=== PATIENT | female | born 1970 | race Caucasian/White ===

== ENCOUNTER 2019-10-12 09:07 | Outpatient (CLI) | payer OTHER, SELFPAY ==
--- NOTE | ~2019-10-12 | MM_ITS ---
EXAMINATION: MM screening [facility] BI w balta HISTORY: Screening mammogram TECHNIQUE: Craniocaudal and mediolateral oblique 3-D tomosynthesis images were obtained and synthetic 2-D images were generated. CAD analysis was submitted and interpreted. COMPARISON: 10/01/2018, 09/23/2017, 09/10/2016 BREAST PARENCHYMAL COMPOSITION: There are scattered areas of fibroglandular density. FINDINGS: There is no evidence of suspicious mass, calcification, or architectural distortion to sugg est malignancy in either breast. There has been no suspicious interval change. IMPRESSION: 1. No mammographic evidence of malignancy. 2. Recommend routine screening mammography in one year. BI-RADS Category 1: Negative Reviewed, dictated and finalized at location A.
== END 2019-10-12 09:08 | disposition home or self-care (01) ==
LOC: ANHIMG 09:10
PROVIDERS: PCP Family Medicine Sports Medicine; Visit Provider Obstetrics & Gynecology
DX: Z12.31 Encounter for screening mammogram for malignant neoplasm of breast (principal)
CPT/HCPCS: 77063; 77067

== ENCOUNTER 2019-10-14 08:43 | Outpatient (CLI) | payer OTHER, SELFPAY ==
--- NOTE | 2019-10-14 09:03 | ECG_ITS ---
Measurements Intervals [place] Rate: 69 P: 41 MS: 143 QRS: 48 QRSD: 107 T: 50 QT: 393 QTc: 422 Interpretive Statements SINUS RHYTHM NORMAL ECG Electronically Signed On 10-14-2019 9:27:09 CDT by Jadon Buckley D.O.
[2019-10-14 09:07] LABS: Basophils Percent Auto 0.6 % (0.2-1.2); Eosinophils Absolute Auto 0.1 K/mm3 (0-0.3); Eosinophils Percent Auto 2.2 % (0-4.4); Hematocrit 43.1 % (37.0-47.0); Hemoglobin 13.7 g/dL (12.0-15.0); Immature Granulocyte Absolute 0.01 K/mm3 (0.00-0.031); Immature Granulocyte Percent A 0.2 % (0-0.5); Lymphocytes Absolute Auto 1.76 K/mm3 (0.9-3.2); Lymphocytes Percent Auto 32.4 % (18.3-44.2); Mean Corpuscular HGB Conc 31.8 g/dl (32-36); Mean Corpuscular Hemoglobin 29.8 pg (26-34); Mean Corpuscular Volume 93.7 fl (80-100); Mean Platelet Volume 10.1 fl (7.4-10.4); Monocytes Absolute Auto 0.4 K/mm3 (0.1-0.6); Monocytes Percent Auto 6.6 % (2.6-8.5); Neutrophils Absolute Auto 3.2 K/mm3 (1.3-6.7); Platelet Count Result 229 k/mm3 (150-375); Red Cell Distribution Width 12.9 % (11.5-14.5); White Blood Count 5.4 K/mm3 (4.5-10.0)
== END 2019-10-14 08:44 | disposition home or self-care (01) ==
PROVIDERS: Visit Provider Obstetrics & Gynecology
DX: Z01.818 Encounter for other preprocedural examination (principal); D25.9 Leiomyoma of uterus, unspecified; Z87.898 Personal history of other specified conditions
CPT/HCPCS: 36415; 85025; 86850; 86900; 86901; 93005

== ENCOUNTER 2019-10-16 01:54 | Day surgery (SDC) | payer OTHER, SELFPAY ==
--- NOTE | 2019-10-12 14:56 | PM.IMHP ---
H&P: HPI History of Present Illness Chief complaint: fast growing uterine fibroid Narrative: Henrietta Arredondo is a 49 year old female is admitted for robotic total vaginectomy bilateral salpingo-oophorectomy. She was seen in the office and noted to have a markedly enlarged uterus. She had a normal exam 1 year prior. She underwent ultrasound which showed a uterus measuring 514cc with a huge fibroid. She has had no bleeding she has had a lot of fullness. In light of the rapid growth of this uterus she is admitted for robotic hysterectomy and bilateral salpingo-oophorectomy risks and benefits reviewed including but not exclusive of , aspiration pneumonia, bleeding, transfusion, infection, perforation injury to bowel, bladder, ureters, or other internal organs with need for open laparotomy. She had all questions answered. She voiced good understanding. And she asked to proceed Review of Systems Review of Systems: All systems reviewed & are unremarkable except as noted in HPI and below Meds Home Medications and Allergies Allergies Allergy/AdvReac Type Severity Reaction Status Date / Time No Known Allergies Allergy Mild Unverified 01/21/09 10:06 Exam Const: General: no acute distress Eyes: General: appearance normal, both eyes and all related structures Neck: Neck: supple and no JVD Thyroid: thyroid normal Resp: Effort & Inspection: normal respiratory effort Auscultation: clear to auscultation bilaterally Cardio: Rate: regular rate Rhythm: regular rhythm GI: Inspection: non-distended GI Palp: Yes Soft to palpation, No Tenderness to palpation present (GI) and No Guarding due to palpation present (GI) Auscultation: normal bowel sounds : External Female Exam: normal external appearance Speculum Exam - Vagina: normal appearance of the vagina and normal vaginal discharge Speculum Exam - Cervix: normal appearance of the cervix Bimanual exam- vagina & uterus: soft ( markedly enlarged filling the entire pelvis) Skin: General skin exam: no rashes or lesions noted Extrem: General: normal to inspection and no edema Psych: Mental Status: mental status grossly normal Affect: normal affect Assessment and Plan Additional Plan impression: Enlarged uterus with a fast growing fibroid Plan: Robotic total vaginal hysterectomy and bilateral salpingo oophorectomy
[2019-10-12 16:30] VITALS: BMI 26.1
--- NOTE | 2019-10-15 15:58 | WPDANESEPPF ---
Anes - Initial Pre Proc Eval Procedure: Operation Date: 10/16/19 13:30 Proposed Procedures p Robotic Assisted Total Vaginal Hysterectomy, Bilateral Salpingo-Oophorectomy - Salvador Mccloud MD Date/Time: 10/15/19 15:58 Surgeon: Salvador Mccloud MD Pre Op Diagnosis: fast growing uterine fibroid Patient Data Age: 49 Gender: F Height: 1.73 m Weight: 78.02 kg Allergies Allergy/AdvReac Type Severity Reaction Status Date / Time No Known Allergies Allergy Mild Unverified 10/16/19 12:56 Home Medications Medication Instructions Recorded Confirmed Type atorvastatin 10 mg PO DAILY 10/12/19 10/16/19 History estradiol-norethindrone acet 1 tablet PO DAILY 10/12/19 10/16/19 History multivitamin 1 tablet PO DAILY 10/12/19 10/16/19 History hydrocodone-acetaminophen [[place]] 1 tablet PO Q4H PRN #30 tablet 10/16/19 Rx Patient hx anesthesia problems: none Family hx anesthesia problems: none PMFSH Past Medical History Medical History (Updated 10/15/19 @ 15:59 by George Orta MD) Fibroid uterus Hypercholesterolemia Overweight (BMI 25.0-29.9) Anes - Eval Final PreProcedure Day of Procedure 10/15/19 15:58 Patient weight: overweight Heart: regular rate and rhythm Lungs: clear to auscultation and normal air movement Airway: Mallampati scale class II Neurological: alert and oriented Last oral intake: >/= 8 hours ASA classification: II Emergent: no Anesthetic plan: proceed Anesthesia type and monitoring: general ETT Informed Consent: The patient's anesthetic plan and its attendant risks and benefits were discussed with the patient/family/POA. Questions were solicited and answers provided to the satisfaction of the patient/family/POA.
[2019-10-16] VITALS (11 sets, daily range): BP systolic 101–134; BP diastolic 50–77; PULSE 56–65; RESP 14–20; TEMP 36.3–37.5; O2SAT 94–100
--- NOTE | 2019-10-16 06:45 | WPDHPUPDATE1 ---
History and Physical Update Update Date/Time: 10/16/19 06:45 History and Physical has been reviewed, including an updated exam of the patient. There are NO changes in the patient's condition. Risks, benefits, and alternatives have been discussed and questions answered. Patient agrees to proceed with procedure.
[2019-10-16] MEDS: LACTATED RINGERS 1,000 ML 30 ML IV CONT ×2 (13:00→17:41)
[2019-10-16] MEDS: ceFAZolin 2 GM/D5W 50 ML 2 GM/50 ML BAG IVPB (15:12)
[2019-10-16] MEDS: KETOROLAC 30 MG/ML VIAL (*BKC) IV PUSH (17:21)
--- NOTE | 2019-10-16 17:25 | P.OP_ITS ---
Procedure Note - Detailed Date of procedure: 10/16/19 Pre-op diagnosis: fast growing uterine fibroid Surgeon: Salvador Mccloud MD Postop diagnosis: Fast growing fibroid uterus Procedure: Robotic total vaginal hysterectomy and bilateral salpingo- oophorectomy EBL: 50cc Finding: A 481 g uterus normal appearing ovaries and tubes Complications: None Anesthesia: General endotracheal Description of procedure: The patient was prepped draped in the normal sterile fashion placed in the dorsal lithotomy position. Under excellent general endotracheal anesthesia weighted speculum was placed in posterior fornix of vagina. Anterior lip of the cervix was grasped with a single-tooth tenaculum. Uterus sounded to 12cm. The 10. RADHA and the 3. And half cold cup placed cervix and uterus. The bladder was emptied of clear urine with a Marinelli catheter. The gloves were changed. A supraumbilical incision was made and the Veress needle passed into the abdomen. Abdomen was filled with CO2 gas [id number]. The 8mm trocar was advanced in the abdomen. Downside visualized seen. Patient was placed in Trendelenburg and right and left lateral quadrant incisions were made. The 8mm trocars were advanced under direct visualization assuring injury. A right upper quadrant incision made and the 10mm trocar advanced under direct visualization assuring no injury. The robot was docked and Attention was turned to the console. The left round ligament was grasped, burned, cut anteriorly a bladder flap was formed by sharply dissecting the bladder caudally from the uterus to the opposite round ligament which was clamped, burned, cut. The ovaries and tubes for Penilla T removed. The left infundibulopelvic structure was skeletonized. This was serially clamped, cut, burned and brought to the level of the previously cut round. In like fashion the right infundibulopelvic structure was skeletonized. It was clamped, burned, cut proximal receive. Next the cardinal and broad ligaments on the left were serially skeletonized then clamped, burned, cut large tortuous vessels were noted in these were individually skeletonized and clamped, cut. Like fashion the cardinal broad ligaments right were serially skeletonized clamped,, cut and brought down lateral edge of the uterus until the uterine vessels could be seen on right. These were individually clamped, burned, cut. It then 0.2 to large size of the fibroid a midline incision was made in the fibroid was exposed remove either remainder the muscle around. A colpotomy incision was then made and the cervix and uterus removed through the abdomen the large fibroid remained at the vaginal cuff this was then grabbed and 9 brought through the incision. Hemostasis was assured. The vagina was then closed with continuous running 0V lock from lateral edge to lateral edge and back to the midline. Irrigation undertaken to clear. The raw surface areas were then sprinkled with [place] term. The robot was undocked. The trocars were removed after gas removed from the abdomen. The incisions were closed with 4 O Monocryl and glue. The patient was awakened. All sponge, needle, instrument counts were correct. There were no immediate complications
[2019-10-16] MEDS: SCOPOLAMINE 1.5 MG PATCH TRANSDERM (17:51)
--- NOTE | 2019-10-16 18:03 | SUR.PHASEI ---
180 - Devyn wilkinson, called and updated.
[2019-10-16] MEDS: DEXTROSE 5%/LACTATED RINGERS 1,000 ML 125 ML IV CONT (19:30)
[2019-10-17 00:40] VITALS: O2SAT 100
[2019-10-17] MEDS: KETOROLAC 30 MG/ML VIAL (*BKC) IV PUSH (00:58)
[2019-10-17 04:40] VITALS: BP 113/58; PULSE 68; RESP 15; TEMP 37.7; O2SAT 94
[2019-10-17] MEDS: IBUPROFEN 600 MG TABLET PO (05:13)
[2019-10-17 05:55] LABS: Basophils Percent Auto 0.1 % (0.2-1.2); Hematocrit 37.8 % (37.0-47.0); Hemoglobin 12.2 g/dL (12.0-15.0); Immature Granulocyte Absolute 0.02 K/mm3 (0.00-0.031); Immature Granulocyte Percent A 0.2 % (0-0.5); Lymphocytes Absolute Auto 0.76 K/mm3 (0.9-3.2); Lymphocytes Percent Auto 9.1 % (18.3-44.2); Mean Corpuscular HGB Conc 32.3 g/dl (32-36); Mean Corpuscular Hemoglobin 30.3 pg (26-34); Mean Corpuscular Volume 93.8 fl (80-100); Mean Platelet Volume 10.4 fl (7.4-10.4); Monocytes Absolute Auto 0.6 K/mm3 (0.1-0.6); Monocytes Percent Auto 7.3 % (2.6-8.5); Neutrophils Absolute Auto 6.9 K/mm3 (1.3-6.7); Neutrophils Percent Auto 83.3 % (45.5-73.1); Platelet Count Result 229 k/mm3 (150-375); Red Blood Count 4.03 M/mm3 (4.2-5.4); White Blood Count 8.3 K/mm3 (4.5-10.0)
[2019-10-17 07:40] VITALS: BP 103/63; PULSE 85; RESP 18; TEMP 37.8; O2SAT 96
[2019-10-17 08:30] VITALS: TEMP 36.9
--- NOTE | 2019-10-17 09:06 | P.DS_ITS ---
DS: Diagnosis Admitting Diagnosis Admitting Diagnosis: Personal history of other specified conditions Discharge Diagnosis (1) Fibroid uterus: Code(s): D25.9 - Leiomyoma of uterus, unspecified Status: Acute DS: Summary Time Spent with Patient Time attestation: Total time spent providing and/or coordinating discharge services: DS: Data Data Completed and Pending Pending studies at discharge: Pending at discharge 10/16/19 16:56 Surgical [PTH] Routine Labs on day of discharge: Labs from last 24 hours 10/17/19 04:55 WBC 8.3 RBC 4.03 L Hgb 12.2 Hct 37.8 MCV 93.8 MCH 30.3 MCHC 32.3 RDW 13.0 Plt Count 229 MPV 10.4 Immature Gran % (Auto) 0.2 Neut % (Auto) 83.3 H Lymph % (Auto) 9.1 L [place] % (Auto) 7.3 Eos % (Auto) 0.0 Baso % (Auto) 0.1 L Lymph # (Auto) 0.76 L [place] # (Auto) 0.6 Eos # (Auto) 0.0 Baso # (Auto) 0.0 Abs Immat Gran (auto) 0.02 Absolute Neuts (auto) 6.9 H Absolute Nucleated RBC 0.0 Nucleated RBC % 0.0 Discharge Plan Discharge Patient Disposition: Home, Self-Care Discharge Instructions: Call or return if temperature above 100.4? F, increased abdominal pain, increased vaginal bleeding or any new problems. Stand Alone Forms: General Discharge Instructions Follow-up/Referrals: Salvador Mccloud MD [Physician] - Discharge Medications: New hydrocodone-acetaminophen [[place]] 5-325 mg tablet 1 tablet PO Q4H PRN (Reason: pain) Qty: 30 RF: 0 No Action atorvastatin 10 mg tablet 10 mg PO DAILY RF: 0 estradiol-norethindrone acet 0.5-0.1 mg tablet 1 tablet PO DAILY RF: 0 multivitamin Tablet 1 tablet PO DAILY RF: 0 Attending physician on admission: Salvador Mccloud
--- NOTE | 2019-10-17 09:06 | PM.GYNPNOP ---
FARM FIELD MANAGER - A/P Postoperative Procedures: Procedures Operation Date: 10/16/19 13:30 Actual Procedures Side Surgeon p Robotic Assisted Total Vaginal Hysterectomy, Bilateral Salpingo-Oophorectomy Bilateral Salvador Mccloud MD A: POD#1, doing well. P: Home to f/u 2 weeks. Time Spent With Patient Time with patient: less than 15 minutes FARM FIELD MANAGER- PN:Subj Post-Op Subjective Date/time seen: 10/17/19 09:06 Interval history: Pain OK. Tolerating diet. Voiding. Would like to go home. Exam Narrative: Exam Narrative: AVSS I/O OK ABD soft, nontender. Incisions c/d/i. EXT nontender FARM FIELD MANAGER - PN: Obj Data Vital Signs Vital Signs: Vital Signs - 24 hr 10/16/19 17:41 10/16/19 17:56 10/16/19 18:10 Temperature 36.3 C L Pulse Rate 65 56 L 61 Respiratory Rate 20 20 14 Blood Pressure 134/50 L 132/77 101/66 Pulse Oximetry 100 100 94 10/16/19 18:30 10/16/19 18:40 10/16/19 19:05 Temperature 36.6 C Pulse Rate 63 57 L 63 Respiratory Rate 15 20 16 Blood Pressure 113/71 109/73 103/63 Pulse Oximetry 99 99 100 10/16/19 19:15 10/16/19 19:30 10/16/19 20:00 Temperature Pulse Rate 58 L 59 L 61 Respiratory Rate Blood Pressure 106/67 106/64 133/68 Pulse Oximetry 100 100 10/16/19 20:30 10/16/19 21:15 10/17/19 00:40 Temperature 37.5 C Pulse Rate 65 65 Respiratory Rate 15 Blood Pressure 116/67 124/75 Pulse Oximetry 100 100 10/17/19 04:40 10/17/19 08:30 Temperature 37.7 C H 36.9 C Pulse Rate 68 Respiratory Rate 15 Blood Pressure 113/58 L Pulse Oximetry 94 Intake/Output Intake/Output: Intake & Output 10/14/19 10/15/19 10/16/19 10/17/19 23:59 23:59 23:59 23:59 Intake Total 550 1350 Output Total 305 1400 Balance 245 -50 Meds/Results Medications: Active Medications Generic Name Dose Route Start Last Admin Trade Name Freq PRN Reason Stop Dose Admin Hydrocodone Bitart/Acetaminophen 1 tab 04/10/20 18:43 [place] 5-325 Mg PO Q3H PRN Pain Rated 5 or Less Hydrocodone Bitart/Acetaminophen 1 tab 10/16/19 18:43 [place] 10-325 Mg PO Q3H PRN Pain Rated 6 or Greater Docusate Sodium 100 mg 10/17/19 09:00 Colace Capsule PO BID LORENA Enoxaparin Sodium 40 mg 10/17/19 09:00 Lovenox SUB-Q DAILY LORENA Dextrose/Lactated Ringer's 1,000 mls @ 125 mls/hr 10/16/19 18:43 10/17/19 04:40 Dextrose 5%/Lactated Ringers IV CONT Infused .Q8H LORENA Infusion Ibuprofen 600 mg 10/16/19 18:43 10/17/19 05:13 Motrin PO 600 mg Q6H PRN Administration Cramping Ketorolac Tromethamine 30 mg 10/16/19 18:43 10/17/19 00:58 Toradol Inj IV PUSH 10/21/19 18:44 30 mg Q6H PRN Administration Pain Rated 4-6 Morphine Sulfate 4 mg 10/16/19 18:43 Morphine Sulfate Inj IV PUSH Q4H PRN Severe breakthrough pain Naloxone HCl 0.1 mg 10/16/19 18:43 Narcan IV PUSH Q2M PRN Respiratory rate less than 10 Ondansetron HCl 4 mg 10/16/19 18:43 Zofran Inj IV PUSH Q6H PRN Nausea And Vomiting Labs CBC & Chem 7: 10/17/19 04:55 Labs: Laboratory Results - last 24 hr 10/17/19 04:55 WBC 8.3 RBC 4.03 L Hgb 12.2 Hct 37.8 MCV 93.8 MCH 30.3 MCHC 32.3 RDW 13.0 Plt Count 229 MPV 10.4 Immature Gran % (Auto) 0.2 Neut % (Auto) 83.3 H Lymph % (Auto) 9.1 L [place] % (Auto) 7.3 Eos % (Auto) 0.0 Baso % (Auto) 0.1 L Lymph # (Auto) 0.76 L [place] # (Auto) 0.6 Eos # (Auto) 0.0 Baso # (Auto) 0.0 Abs Immat Gran (auto) 0.02 Absolute Neuts (auto) 6.9 H Absolute Nucleated RBC 0.0 Nucleated RBC % 0.0
[2019-10-17] MEDS: DOCUSATE SODIUM 100 MG CAPSULE PO (09:57)
[2019-10-17] MEDS: ENOXAPARIN 40 MG/0.4 ML SYRINGE SUB-Q (09:57)
== END 2019-10-17 10:39 | disposition home or self-care (01) ==
LOC: ANHSURGERY 11:37 → ANHOB2 18:50
PROVIDERS: Visit Provider Obstetrics & Gynecology
PROC: (CPT 58554; principal; 2019-10-16 13:30)
DX: D25.1 Intramural leiomyoma of uterus (principal); D25.2 Subserosal leiomyoma of uterus; E78.00 Pure hypercholesterolemia, unspecified
CPT/HCPCS: 58554; S2900; 36415; 85025; 88307; 99199; A9270; J0360; J0690; J1200; J1650; J1885; J2250; J2405; J2704; J2710; J3010; J7030; J7120; J7121

== ENCOUNTER 2020-10-18 13:00 | Outpatient (CLI) | payer OTHER, SELFPAY | END 2020-10-18 13:01 | disposition home or self-care (01) | LOC: ANHCOVIDVC 13:00 | PROVIDERS: PCP Obstetrics & Gynecology | DX: Z23 Encounter for immunization (principal) | CPT/HCPCS: 0001A; 91300 ==

== ENCOUNTER 2020-11-08 12:54 | Outpatient (CLI) | payer OTHER, SELFPAY | END 2020-11-08 12:55 | disposition home or self-care (01) | LOC: ANHCOVIDVC 12:54 | PROVIDERS: PCP Obstetrics & Gynecology | DX: Z23 Encounter for immunization (principal) | CPT/HCPCS: 0002A; 91300 ==

== ENCOUNTER 2021-05-25 09:31 | Outpatient (CLI) | payer OTHER, SELFPAY ==
--- NOTE | ~2021-05-25 | MM_ITS ---
EXAMINATION: MM screening [facility] BI w balta HISTORY: Screening mammogram TECHNIQUE: Craniocaudal and mediolateral oblique 3-D tomosynthesis images were obtained and synthetic 2-D images were generated. CAD analysis was submitted and interpreted. COMPARISON: 10/12/2019, 10/01/2018 BREAST PARENCHYMAL COMPOSITION: There are scattered areas of fibroglandular density. FINDINGS: There is no evidence of suspicious mass, calcification, or architectural distortion to sugg est malignancy in either breast. There has been no suspicious interval change. IMPRESSION: 1. No mammographic evidence of malignancy. 2. Recommend routine screening mammography in one year. BI-RADS Category 1: Negative Reviewed, dictated and finalized at location A. ILIZATION TECH
== END 2021-05-25 09:32 | disposition home or self-care (01) ==
LOC: ANHIMG 09:34
PROVIDERS: PCP Obstetrics & Gynecology; Visit Provider Obstetrics & Gynecology
DX: Z12.31 Encounter for screening mammogram for malignant neoplasm of breast (principal)
CPT/HCPCS: 77063; 77067

== ENCOUNTER 2022-06-11 14:21 | Outpatient (CLI) | payer OTHER, SELFPAY ==
--- NOTE | ~2022-06-11 | MM_ITS ---
EXAMINATION: MM screening [facility] BI w balta HISTORY: Screening mammogram TECHNIQUE: Craniocaudal and mediolateral oblique 3-D tomosynthesis images were obtained and synthetic 2-D images were generated. CAD analysis was submitted and interpreted. COMPARISON: 05/25/2021, 10/12/2019, 10/01/2018 BREAST PARENCHYMAL COMPOSITION: There are scattered areas of fibroglandular density. FINDINGS: No suspicious mass, calcification, or architectural distortion are identified in either dario ast to suggest malignancy. There has been no suspicious interval change. IMPRESSION: 1. No mammographic evidence of malignancy. 2. Recommend routine screening mammography in one year. BI-RADS Category 1: Negative Reviewed, dictated and finalized at location A. ARY SUPERVISOR
== END 2022-06-11 14:22 | disposition home or self-care (01) ==
PROVIDERS: PCP Family Medicine Sports Medicine; Visit Provider Obstetrics & Gynecology
DX: Z12.31 Encounter for screening mammogram for malignant neoplasm of breast (principal)
CPT/HCPCS: 77063; 77067

== ENCOUNTER 2023-07-10 07:58 | Outpatient (CLI) | payer OTHER, SELFPAY ==
--- NOTE | ~2023-07-10 | MM_ITS ---
EXAMINATION: MM screening [facility] BI w balta HISTORY: Screening mammogram TECHNIQUE: Craniocaudal and mediolateral oblique 3-D tomosynthesis images were obtained and synthetic 2-D images were generated. CAD analysis was submitted and interpreted. COMPARISON: 06/11/2022, 05/25/2021, 10/12/2019 BREAST PARENCHYMAL COMPOSITION: There are scattered areas of fibroglandular density. FINDINGS: No suspicious mass, calcification, or architectural distortion are identified in either dario ast to suggest malignancy. There has been no suspicious interval change. IMPRESSION: 1. No mammographic evidence of malignancy. 2. Recommend routine screening mammography in one year. BI-RADS Category 1: Negative Reviewed, dictated and finalized at location A. POISONER
== END 2023-07-10 07:59 | disposition home or self-care (01) ==
LOC: CHSIMG 08:03
PROVIDERS: PCP Family Medicine Sports Medicine; Visit Provider Obstetrics & Gynecology
DX: Z12.31 Encounter for screening mammogram for malignant neoplasm of breast (principal)
CPT/HCPCS: 77063; 77067

== ENCOUNTER 2024-07-21 12:54 | Outpatient (CLI) | payer OTHER, SELFPAY ==
--- NOTE | ~2024-07-21 | MM_ITS ---
EXAMINATION: MM screening [facility] BI w balta HISTORY: Screening mammogram TECHNIQUE: Craniocaudal and mediolateral oblique 3-D tomosynthesis images were obtained and synthetic 2-D images were generated. CAD analysis was submitted and interpreted. COMPARISON: 07/10/2023, 06/11/2022, 05/25/2021, 10/12/2019 BREAST PARENCHYMAL COMPOSITION:Not Dense. There are scattered areas of fibroglandular density. FINDINGS: No suspicious mass, calcification, or architectural distortion are identified in either dario ast to suggest malignancy. There has been no suspicious interval change. IMPRESSION: No mammographic evidence of malignancy. Recommend routine screening mammography in one year. BI-RADS Category 1: Negative Reviewed, dictated and finalized at location . RNAL SALESPERSON
== END 2024-07-21 12:55 | disposition home or self-care (01) ==
LOC: CHSIMG 12:58
PROVIDERS: PCP Family Medicine; Visit Provider Obstetrics & Gynecology
DX: Z12.31 Encounter for screening mammogram for malignant neoplasm of breast (principal)
CPT/HCPCS: 77063; 77067